=== PATIENT | female | born 1950 | race Asian ===

== ENCOUNTER → 2023-07-17 | Outpatient (CLI) | payer MEDICARE, MEDICAID ==
[~2023-07-17] MED LIST: ACET325S20 PR; ALEN70TA65 PO; AMLO-258 PO; CHOL25TA4 PO; DICL100G60 TP; DOCU-412 PO; GABA-1181 PO; HYDR25TA84 PO; KETO-99 OU; LIDO700A15 TP; LORA10TA7 PO; MEDR4 PO; OXYC5 PO; POLY17PO47 PO; SENN-376 PO
[2023-07-17 13:49] VITALS: BP 137/84; PULSE 88; RESP 22; TEMP 99.1; O2SAT 97
== END | disposition home or self-care (01) ==
LOC: SRCNTR 13:40
PROVIDERS: ATTEND Internal Medicine Pulmonary Disease
DX: J45.901 Unspecified asthma with (acute) exacerbation (principal); M19.90 Unspecified osteoarthritis, unspecified site; F32.A Depression, unspecified; M54.50 Low back pain, unspecified; G89.4 Chronic pain syndrome; M43.16 Spondylolisthesis, lumbar region; R32 Unspecified urinary incontinence
CPT/HCPCS: G0463; Z7500

== ENCOUNTER 2024-05-24 17:59 | Inpatient (IN) | payer MEDICARE, MEDICAID ==
[~2024-05-24] VITALS: Ht 144.8 cm; Wt 56.9 kg
[~2024-05-24 17:59] MED LIST changes: -MEDR4 PO; +METH4TAB95 PO
[2024-05-24] MEDS ORDERED: HYDR25TA2 PO (18:30)
[2024-05-24] MEDS ORDERED: METF-1211 PO (18:30)
[2024-05-24 18:51] LABS: BASOPHILS % (AUTO) 0.7 % (0.0-2.0); HEMATOCRIT 39.6 % (36-46); LYMPHOCYTES # (AUTO) 2.2 K/uL (1.0-4.8); LYMPHOCYTES % (AUTO) 30.5 % (22.0-44.0); MEAN CORPUSCULAR HEMOGLOBIN 29.9 pg (26.0-34.0); MEAN CORPUSCULAR HGB CONC 32.9 G/dL (31.0-37.0); MEAN CORPUSCULAR VOLUME 91 fL (80-100); MONOCYTES # (AUTO) 0.6 K/uL (0.1-1.0); MONOCYTES % (AUTO) 7.8 % (2.0-9.0); NEUTROPHILS # (AUTO) 4.3 K/uL (1.8-7.7); PLATELET COUNT (AUTO) 317 K/uL (150-450); RED BLOOD CELL COUNT(AUTO) 4.36 MIL/uL (4.00-5.20); RED CELL DISTRIBUTION WIDTH 13.5 % (11.5-14.5); WHITE BLOOD COUNT (AUTO) 7.2 K/uL (4.5-11.0)
[2024-05-24 18:57] LABS: ANION GAP 9 mmol/L (8-16); CARBON DIOXIDE 28 mmol/L (22-29); CHLORIDE 100 mmol/L (98-107); CREATININE 0.56 mg/dL (0.60-1.30); GLOMERULAR FILTR. RATE CALC > 60 mL/min (>60); GLUCOSE,RANDOM 104 mg/dL (70-110); POTASSIUM 4.2 mmol/L (3.5-5.1); SODIUM SERUM 137 mmol/L (136-145); UREA NITROGEN, BLOOD 19 mg/dL (7-18)
[2024-05-24 19:20] LABS: COVID AG,FIA SOURCE NASAL SWAB
[2024-05-24 19:29] LABS: PH,URINE DRUG SCREEN 5.5 (5.0-8.0)
[2024-05-24 19:39] LABS: SARS-COV2 (COVID) ANTIGEN,FIA Negative (Negative)
[2024-05-24 19:39] LABS: AMPHET/METH SCREEN,URINE NEGATIVE (NEGATIVE); BARBITURATE SCREEN, URINE NEGATIVE (NEGATIVE); BENZODIAZEPINES SCREEN,URINE NEGATIVE (NEGATIVE); CANNABINOID SCREEN,URINE NEGATIVE (NEGATIVE); COCAINE SCREEN,URINE NEGATIVE (NEGATIVE); METHADONE SCREEN, URINE NEGATIVE (NEGATIVE); OPIATE SCREEN,URINE NEGATIVE (NEGATIVE); PHENCYCLIDINE SCREEN,URINE NEGATIVE (NEGATIVE)
[2024-05-24 19:48] LABS: ALCOHOL, BLOOD (SERUM) < 3 mg/dL (0-10)
[2024-05-24 19:48] LABS: ALCOHOL, URINE DRUG SCREEN NEGATIVE (NEGATIVE)
[2024-05-24] MEDS: ZOLPIDEM TARTRATE 10 MG TABLET PO PRN (21:37)
[2024-05-24] MEDS: HALOPERIDOL 5 MG TABLET PO PRN (21:37)
[2024-05-24] MEDS: LORazepam 2 MG TABLET PO PRN (21:37)
[2024-05-24 22:42] LABS: APPEARANCE,URINE CLEAR (CLEAR); BILIRUBIN,URINE NEGATIVE (NEGATIVE); COLOR,URINE LIGHT YELLOW (YELLOW); GLUCOSE, URINE (UA) NEGATIVE (NEGATIVE); KETONES,URINE NEGATIVE (NEGATIVE); LEUKOCYTE ESTERASE ,URINE NEGATIVE (NEGATIVE); NITRATE,URINE NEGATIVE (NEGATIVE); OCCULT BLOOD,URINE TRACE (NEGATIVE); PH,URINE 5.5 (5.0-8.0); PH,URINE DRUG SCREEN 5.5 (5.0-8.0); PROTEIN,URINE NEGATIVE (NEGATIVE); SPECIFIC GRAVITIY, URINE 1.014 (1.003-1.030); UROBILINOGEN,URINE <=1.0 mg/dL (<=1.0)
[2024-05-24 22:50] LABS: ALCOHOL, URINE DRUG SCREEN NEGATIVE (NEGATIVE); AMPHET/METH SCREEN,URINE NEGATIVE (NEGATIVE); BARBITURATE SCREEN, URINE NEGATIVE (NEGATIVE); BENZODIAZEPINES SCREEN,URINE NEGATIVE (NEGATIVE); CANNABINOID SCREEN,URINE NEGATIVE (NEGATIVE); COCAINE SCREEN,URINE NEGATIVE (NEGATIVE); METHADONE SCREEN, URINE NEGATIVE (NEGATIVE); OPIATE SCREEN,URINE NEGATIVE (NEGATIVE); PHENCYCLIDINE SCREEN,URINE NEGATIVE (NEGATIVE)
[2024-05-24 23:02] LABS: BACTERIA,URINE Few /HPF (None Seen); SQUAMOUS EPITHELIAL CELL,UR Few /LPF (None Seen); WBC,URINE 0-2 /HPF (0-5)
[2024-05-24] MEDS: HALOPERIDOL LACTATE 5 MG/ML VIAL IM ONE (23:48)
[2024-05-24] MEDS: LORazepam 2 MG/ML VIAL IM ONE (23:48)
[2024-05-24] MEDS: DiphenhydrAMINE HCL 50 MG/ML VIAL IM ONE (23:48)
[2024-05-25 00:54] VITALS: BP 113/66; PULSE 93; RESP 18; TEMP 98.2; O2SAT 97
[2024-05-25 01:50] VITALS: BP 113/66; PULSE 93; RESP 18; TEMP 98.2; O2SAT 97
[2024-05-25] MEDS: MetFORMIN HCL 500 MG TABLET PO ONE (07:24)
[2024-05-25 09:43] VITALS: BP 112/66; PULSE 61; RESP 17; TEMP 97.2; O2SAT 100
[2024-05-25] MEDS ORDERED: ALBUTEROL SULFATE HFA 90 MCG/PUFF 8 GM INHALER IH PRN (10:00)
[2024-05-25] MEDS ORDERED: CloNIDine HCL 0.1 MG TABLET PO PRN (10:00)
[2024-05-25] MEDS ORDERED: GuaiFENesin/D-METHORPHAN [SUGAR-FREE] 200-20MG/10 ML SYRUP UDCUP PO PRN (10:00)
[2024-05-25] MEDS ORDERED: MAGNESIUM HYDROXIDE SUSPENSION 30 ML UDCUP PO PRN (10:00)
[2024-05-25] MEDS ORDERED: MAG HYDROX/ALUMINUM HYD/SIMETH ES 30 ML SUSPENSION UDCUP PO PRN (10:00)
[2024-05-25] MEDS ORDERED: DOCUSATE SODIUM 100 MG CAPSULE PO PRN (10:00)
[2024-05-25] MEDS ORDERED: LOPERAMIDE HCL 2 MG CAPSULE PO PRN (10:00)
[2024-05-25] MEDS ORDERED: IBUPROFEN 400 MG TABLET PO PRN (10:00)
[2024-05-25] MEDS ORDERED: NICOTINE 14 MG/24 HOUR PATCH TD PRN (10:00)
[2024-05-25] MEDS ORDERED: ONDANSETRON 4 MG TABLET PO PRN (10:00)
[2024-05-25] MEDS ORDERED: PETROLATUM,WHITE 28 GM JELLY TP PRN (10:00)
[2024-05-25] MEDS ORDERED: ACETAMINOPHEN 325 MG TABLET PO PRN (10:00)
[2024-05-25] MEDS: GABAPENTIN 300 MG CAPSULE PO SCH (13:00)
[2024-05-25] MEDS: VALPROIC ACID 250 MG CAPSULE PO SCH (17:00)
[2024-05-25 17:40] LABS: GLUCOMETER DEV NAME(LOC) 3E.I 2; GLUCOSE,POINT OF CARE 127 MG/DL (70-110)
[2024-05-25 17:40] LABS: GLUCOMETER DEV NAME(LOC) 3E.I 2; GLUCOSE,POINT OF CARE 110 MG/DL (70-110)
[2024-05-25 23:30] VITALS: BP 143/74; PULSE 73; RESP 16; TEMP 97.4; O2SAT 96
[2024-05-26 06:20] LABS: GLUCOMETER DEV NAME(LOC) 3E.I 2; GLUCOSE,POINT OF CARE 105 MG/DL (70-110)
[2024-05-26 07:47] LABS: BASOPHILS % (AUTO) 0.7 % (0.0-2.0); EOSINOPHILS % (AUTO) 2.6 % (1.0-6.0); HEMATOCRIT 38.6 % (36-46); HEMOGLOBIN 12.6 g/dL (12.0-16.0); LYMPHOCYTES # (AUTO) 2.1 K/uL (1.0-4.8); LYMPHOCYTES % (AUTO) 35.2 % (22.0-44.0); MEAN CORPUSCULAR HGB CONC 32.6 G/dL (31.0-37.0); MEAN CORPUSCULAR VOLUME 92 fL (80-100); MONOCYTES # (AUTO) 0.4 K/uL (0.1-1.0); NEUTROPHILS # (AUTO) 3.2 K/uL (1.8-7.7); NEUTROPHILS % (AUTO) 54.5 % (40.0-70.0); PLATELET COUNT (AUTO) 298 K/uL (150-450); RED CELL DISTRIBUTION WIDTH 13.2 % (11.5-14.5); WHITE BLOOD COUNT (AUTO) 5.9 K/uL (4.5-11.0)
[2024-05-26 08:00] LABS: HEMOGLOBIN A1C 5.9 % (3.8-5.6)
[2024-05-26 08:12] LABS: THYROID STIMULATING HORMONE 3.44 uIU/mL (0.36-3.74)
[2024-05-26 08:35] VITALS: BP 135/78; PULSE 63; RESP 18; TEMP 97.6; O2SAT 98
[2024-05-26 08:35] LABS: CHOL/HDL RATIO 3.2 (3.9-5.7)
[2024-05-26] MEDS: AmLODIPine BESYLATE 10 MG TABLET PO SCH (09:00)
[2024-05-26] MEDS: POLYETHYLENE GLYCOL 3350 17 GM PACKET PO SCH (10:04)
[2024-05-26] MEDS: CHOLECALCIFEROL (VIT D3) 1,000 UNITS [25 MCG] TABLET PO SCH (10:26)
[2024-05-26] MEDS ORDERED: GABAPENTIN 100 MG CAPSULE PO SCH (13:00)
[2024-05-26] MEDS: GABAPENTIN 100 MG CAPSULE PO SCH (13:05)
[2024-05-26 17:20] LABS: GLUCOMETER DEV NAME(LOC) 3EX.2; GLUCOSE,POINT OF CARE 129 MG/DL (70-110)
[2024-05-26 22:14] VITALS: BP 123/66; PULSE 68; RESP 18; TEMP 98.4; O2SAT 97
[2024-05-27 05:50] LABS: GLUCOMETER DEV NAME(LOC) 3E.I 2; GLUCOSE,POINT OF CARE 117 MG/DL (70-110)
[2024-05-27 09:27] VITALS: BP 124/70; PULSE 71; RESP 18; TEMP 97.5; O2SAT 98
[2024-05-27 17:16] LABS: GLUCOMETER DEV NAME(LOC) 3EX.2; GLUCOSE,POINT OF CARE 143 MG/DL (70-110)
[2024-05-27 20:41] VITALS: BP 113/65; PULSE 71; RESP 17; TEMP 97.4; O2SAT 97
[2024-05-28 05:41] LABS: GLUCOMETER DEV NAME(LOC) 3E.I 2; GLUCOSE,POINT OF CARE 111 MG/DL (70-110)
[2024-05-28 10:05] VITALS: BP 131/79; PULSE 68; RESP 18; TEMP 97.5; O2SAT 98
[2024-05-28 17:11] LABS: GLUCOMETER DEV NAME(LOC) 3EX.2; GLUCOSE,POINT OF CARE 111 MG/DL (70-110)
[2024-05-28 20:56] VITALS: BP 119/60; PULSE 66; RESP 18; TEMP 97.5; O2SAT 97
[2024-05-29 06:56] LABS: GLUCOMETER DEV NAME(LOC) 3E.I 2; GLUCOSE,POINT OF CARE 106 MG/DL (70-110)
[2024-05-29 08:36] VITALS: BP 107/60; PULSE 63; RESP 18; TEMP 97.9; O2SAT 96
[2024-05-29 16:50] LABS: GLUCOMETER DEV NAME(LOC) 3EX.2; GLUCOSE,POINT OF CARE 117 MG/DL (70-110)
[2024-05-29 21:01] VITALS: BP 136/86; PULSE 93; RESP 18; TEMP 97.7; O2SAT 98
[2024-05-30 05:40] LABS: GLUCOMETER DEV NAME(LOC) 3E.I 2; GLUCOSE,POINT OF CARE 100 MG/DL (70-110)
[2024-05-30 09:45] VITALS: BP 123/67; PULSE 67; RESP 18; TEMP 97.8; O2SAT 98
[2024-05-30] MEDS: DICLOFENAC SODIUM 1% 100 GM GEL [2GM] TP PRN (12:30)
== END 2024-05-30 16:40 | DRG 884 ==
LOC: EMS 17:59 → 3EI 05-25 00:33 → 3EX 05-25 00:44
PROVIDERS: ADMIT Psychiatry & Neurology Child & Adolescent Psychiatry; ATTEND Psychiatry & Neurology Child & Adolescent Psychiatry
PROC: GZ52ZZZ Individual Psychotherapy, Cognitive (ICD-10-PCS; principal; 2024-05-26)
PROC: GZ56ZZZ Individual Psychotherapy, Supportive (ICD-10-PCS; 2024-05-26)
DX: F03.92 Unspecified dementia, unspecified severity, with psychotic disturbance (principal); F03.911 Unspecified dementia, unspecified severity, with agitation; E11.9 Type 2 diabetes mellitus without complications; I10 Essential (primary) hypertension; Z20.822 Contact with and (suspected) exposure to COVID-19; R13.10 Dysphagia, unspecified; M81.0 Age-related osteoporosis without current pathological fracture; K59.00 Constipation, unspecified; E11.40 Type 2 diabetes mellitus with diabetic neuropathy, unspecified; Z86.61 Personal history of infections of the central nervous system
CPT/HCPCS: 70450; 80048; 80061; 80164; 80307; 81001; 81003; 82962; 83036; 84443; 85025; 87081; 99285; G0378; G0480; J1200; J1630; J2060

== ENCOUNTER 2024-11-11 12:05 | Inpatient (IN) | payer MEDICARE, MEDICAID ==
[~2024-11-11] VITALS: Ht 144.8 cm; Wt 57.0 kg
[~2024-11-11 12:05] MED LIST changes: +HYDR25TA2 PO; -HYDR25TA84 PO; -KETO-99 OU; +METF-1211 PO; -METH4TAB95 PO
[2024-11-11 13:29] LABS: BASOPHILS % (AUTO) 0.6 % (0.0-2.0); HEMATOCRIT 41.4 % (36-46); HEMOGLOBIN 13.7 g/dL (12.0-16.0); LYMPHOCYTES # (AUTO) 1.6 K/uL (1.0-4.8); LYMPHOCYTES % (AUTO) 28.5 % (22.0-44.0); MEAN CORPUSCULAR HEMOGLOBIN 29.9 pg (26.0-34.0); MEAN CORPUSCULAR HGB CONC 33.1 G/dL (31.0-37.0); MEAN CORPUSCULAR VOLUME 91 fL (80-100); MONOCYTES # (AUTO) 0.4 K/uL (0.1-1.0); MONOCYTES % (AUTO) 6.4 % (2.0-9.0); NEUTROPHILS # (AUTO) 3.5 K/uL (1.8-7.7); NEUTROPHILS % (AUTO) 63.5 % (40.0-70.0); PLATELET COUNT (AUTO) 310 K/uL (150-450); RED BLOOD CELL COUNT(AUTO) 4.57 MIL/uL (4.00-5.20); WHITE BLOOD COUNT (AUTO) 5.5 K/uL (4.5-11.0)
[2024-11-11 13:38] LABS: ANION GAP 9 mmol/L (8-16); CALCIUM, TOTAL 9.1 mg/dL (8.8-10.5); CARBON DIOXIDE 27 mmol/L (22-29); CHLORIDE 105 mmol/L (98-107); CREATININE 0.45 mg/dL (0.60-1.30); GLOMERULAR FILTR. RATE CALC > 60 mL/min (>60); GLUCOSE,RANDOM 92 mg/dL (70-110); POTASSIUM 3.8 mmol/L (3.5-5.1); SODIUM SERUM 141 mmol/L (136-145); UREA NITROGEN, BLOOD 13 mg/dL (7-18)
[2024-11-11] MEDS ORDERED: HALOPERIDOL 5 MG TABLET PO PRN (14:30)
[2024-11-11] MEDS ORDERED: ZOLPIDEM TARTRATE 10 MG TABLET PO PRN (14:30)
[2024-11-11] MEDS ORDERED: LORazepam 2 MG TABLET PO PRN (14:30)
[2024-11-11 16:03] LABS: COVID AG,FIA SOURCE NASAL SWAB
[2024-11-11 16:23] LABS: SARS-COV2 (COVID) ANTIGEN,FIA Negative (Negative)
[2024-11-11 16:55] LABS: APPEARANCE,URINE CLEAR (CLEAR); BILIRUBIN,URINE NEGATIVE (NEGATIVE); COLOR,URINE COLORLESS (YELLOW); GLUCOSE, URINE (UA) NEGATIVE (NEGATIVE); KETONES,URINE TRACE mg/dL (NEGATIVE); LEUKOCYTE ESTERASE ,URINE NEGATIVE (NEGATIVE); NITRATE,URINE NEGATIVE (NEGATIVE); OCCULT BLOOD,URINE SMALL (NEGATIVE); PH,URINE 6.5 (5.0-8.0); PH,URINE DRUG SCREEN 6.5 (5.0-8.0); PROTEIN,URINE NEGATIVE (NEGATIVE); SPECIFIC GRAVITIY, URINE 1.009 (1.003-1.030); UROBILINOGEN,URINE <=1.0 mg/dL (<=1.0)
[2024-11-11 17:03] LABS: AMPHET/METH SCREEN,URINE NEGATIVE (NEGATIVE); BARBITURATE SCREEN, URINE NEGATIVE (NEGATIVE); BENZODIAZEPINES SCREEN,URINE NEGATIVE (NEGATIVE); CANNABINOID SCREEN,URINE NEGATIVE (NEGATIVE); COCAINE SCREEN,URINE NEGATIVE (NEGATIVE); METHADONE SCREEN, URINE NEGATIVE (NEGATIVE); OPIATE SCREEN,URINE NEGATIVE (NEGATIVE); PHENCYCLIDINE SCREEN,URINE NEGATIVE (NEGATIVE)
[2024-11-11 17:09] LABS: ALCOHOL, URINE DRUG SCREEN NEGATIVE (NEGATIVE)
[2024-11-11 17:18] LABS: BACTERIA,URINE Few /HPF (None Seen); RBC,URINE 0-2 /HPF (0-2); SQUAMOUS EPITHELIAL CELL,UR Few /LPF (None Seen); WBC,URINE 0-2 /HPF (0-5)
[2024-11-11 18:47] VITALS: BP 137/76; PULSE 71; RESP 17; TEMP 97.6; O2SAT 98
[2024-11-11] MEDS ORDERED: LOPERAMIDE HCL 2 MG CAPSULE PO PRN (20:15)
[2024-11-11] MEDS ORDERED: NICOTINE 14 MG/24 HOUR PATCH TD PRN (20:15)
[2024-11-11] MEDS ORDERED: CloNIDine HCL 0.1 MG TABLET PO PRN (20:15)
[2024-11-11] MEDS ORDERED: OxyCODONE HCL 5 MG IR TABLET PO PRN (20:15)
[2024-11-11] MEDS ORDERED: PETROLATUM,WHITE 28 GM JELLY TP PRN (20:15)
[2024-11-11] MEDS ORDERED: ONDANSETRON 4 MG TABLET PO PRN (20:15)
[2024-11-11] MEDS ORDERED: MAGNESIUM HYDROXIDE SUSPENSION 30 ML UDCUP PO PRN (20:15)
[2024-11-11] MEDS ORDERED: MAG HYDROX/ALUMINUM HYD/SIMETH ES 30 ML SUSPENSION UDCUP PO PRN (20:15)
[2024-11-11] MEDS ORDERED: ALBUTEROL SULFATE HFA 90 MCG/PUFF 8 GM INHALER IH PRN (20:15)
[2024-11-11] MEDS ORDERED: IBUPROFEN 400 MG TABLET PO PRN (20:15)
[2024-11-11] MEDS ORDERED: DOCUSATE SODIUM 100 MG CAPSULE PO PRN (20:15)
[2024-11-11] MEDS ORDERED: GuaiFENesin/D-METHORPHAN [SUGAR-FREE] 200-20MG/10 ML SYRUP UDCUP PO PRN (20:15)
[2024-11-11 23:09] VITALS: BP 136/66; PULSE 69; RESP 18; TEMP 97.3; O2SAT 97
[2024-11-12] MEDS ORDERED: PHENYLEPHRINE/SHK LV/MIN OIL/PET 57 GM OINTMENT TP PRN (09:00)
[2024-11-12] MEDS: QUEtiapine FUMARATE 25 MG TABLET PO SCH (10:15)
[2024-11-12] MEDS: HYDROCHLOROTHIAZIDE 25 MG TABLET PO SCH (10:52)
[2024-11-12] MEDS: LORATADINE 10 MG TABLET PO SCH (10:52)
[2024-11-12] MEDS: POLYETHYLENE GLYCOL 3350 17 GM PACKET PO SCH (10:52)
[2024-11-12] MEDS: SENNOSIDES 8.6 MG TABLET PO SCH (10:52)
[2024-11-12] MEDS: CHOLECALCIFEROL (VIT D3) 1,000 UNITS [25 MCG] TABLET PO SCH (10:53)
[2024-11-12] MEDS: AmLODIPine BESYLATE 10 MG TABLET PO SCH (10:53)
[2024-11-12] MEDS: MetFORMIN HCL 500 MG TABLET PO SCH (17:30)
[2024-11-12 19:19] VITALS: BP 138/66; PULSE 82; RESP 18; TEMP 98; O2SAT 98
[2024-11-12 22:53] VITALS: BP 143/71; PULSE 71; RESP 17; TEMP 97.9; O2SAT 96
[2024-11-13 10:06] VITALS: BP 107/67; PULSE 70; RESP 18; TEMP 97.8; O2SAT 97
[2024-11-13] MEDS: GABAPENTIN 100 MG CAPSULE PO SCH (11:25)
[2024-11-13] MEDS: CARBIDOPA/LEVODOPA 25-100 MG TABLET PO SCH (17:21)
[2024-11-13 22:27] VITALS: PULSE 91; RESP 18; TEMP 97.2
[2024-11-14 08:57] VITALS: BP 140/70; PULSE 80; RESP 17; TEMP 97.9; O2SAT 97
[2024-11-14 09:58] LABS: HEMOGLOBIN A1C 5.8 % (3.8-5.6)
[2024-11-14 10:05] LABS: CHOL/HDL RATIO 3.9 (3.9-5.7); CHOLESTEROL 264 mg/dL (131-200); HDL CHOLESTEROL 67 mg/dL (40-60); LDL CHOL (CALC.) 143 mg/dL (0-130); THYROID STIMULATING HORMONE 1.44 uIU/mL (0.36-3.74); TRIGLYCERIDES 270 mg/dL (15-150)
[2024-11-14 21:26] VITALS: BP 115/60; PULSE 72; RESP 18; TEMP 97.5; O2SAT 97
[2024-11-15 09:05] VITALS: BP 127/65; PULSE 74; RESP 16; TEMP 97.3; O2SAT 99
[2024-11-15 10:18] LABS: CHOL/HDL RATIO 3.8 (3.9-5.7)
[2024-11-15] MEDS: ATORVASTATIN CALCIUM 20 MG TABLET PO SCH (21:00)
[2024-11-15 21:20] VITALS: BP 145/67; PULSE 76; RESP 18; TEMP 96.8; O2SAT 98
[2024-11-15] MEDS: ACETAMINOPHEN 325 MG TABLET PO PRN (22:15)
[2024-11-16 14:33] VITALS: BP 120/71; PULSE 63; RESP 18; TEMP 97.1; O2SAT 98
[2024-11-16 22:31] VITALS: BP 146/71; PULSE 74; RESP 19; TEMP 98.1; O2SAT 98
[2024-11-17] MEDS: HYDROCORTISONE 2.5% 30 GM CREAM TP PRN (08:37)
[2024-11-17 09:01] VITALS: BP 121/56; PULSE 55; RESP 18; TEMP 98; O2SAT 98
[2024-11-17] MEDS ORDERED: QUET25TA PO (09:01)
[2024-11-17] MEDS ORDERED: ATOR20TA PO (09:11)
[2024-11-17] MEDS ORDERED: CARB1TAB36 PO (09:12)
== END 2024-11-17 18:20 | DRG 885 ==
LOC: EMS 12:05 → 3EX 18:12
PROVIDERS: ADMIT Psychiatry & Neurology Psychiatry; ATTEND Psychiatry & Neurology Psychiatry
PROC: GZHZZZZ Group Psychotherapy (ICD-10-PCS; principal; 2024-11-12)
PROC: GZ51ZZZ Individual Psychotherapy, Behavioral (ICD-10-PCS; 2024-11-12)
DX: F20.0 Paranoid schizophrenia (principal); E44.0 Moderate protein-calorie malnutrition; G20.A1 Parkinson's disease without dyskinesia, without mention of fluctuations; I10 Essential (primary) hypertension; Z20.822 Contact with and (suspected) exposure to COVID-19; F02.80 Dementia in other diseases classified elsewhere, unspecified severity, without behavioral disturbance, psychotic disturbance, mood disturbance, and anxiety; E11.40 Type 2 diabetes mellitus with diabetic neuropathy, unspecified; K59.00 Constipation, unspecified; E55.9 Vitamin D deficiency, unspecified; E78.5 Hyperlipidemia, unspecified; Z68.27 Body mass index [BMI] 27.0-27.9, adult; Z86.61 Personal history of infections of the central nervous system
CPT/HCPCS: 80048; 80061; 80307; 81001; 83036; 84443; 85025; 87081; 99285; G0378; G0480